=== PATIENT | female | born 1950 | race Caucasian/White ===

== ENCOUNTER 2016-08-11 14:17 | Emergency (ER) | payer BC, SELFPAY ==
[2016-08-11] MEDS ORDERED: HYDROmorphone 1 MG/ML Syringe IVPUSH ONE (14:21)
--- NOTE | 2016-08-11 14:44 | CR ---
Knee 1V or 2V Rt HISTORY: trauma pain FINDINGS: There is an oblique linear lucency at the intercondylar notch distal right femur suspiciou s for subtle nondisplaced fracture. Subtle linear lucency overlies the lateral femoral condyle which could also be associated with fracture. No displacement or dislocation is seen. There is mild degenerative narrowing of the lateral compartment with small lateral osteophytes. Dege nerative changes with small superior and inferior patellar osteophytes are seen at the patellofemora l joint. Joint effusion is noted with fluid in the suprapatellar bursa. IMPRESSION: 1. Joint effusion with fluid in the suprapatellar bursa. 2. Linear lucency suspicious for subtle fracture involving the lateral femoral condyle and at the in tracondylar notch. I see no displacement. 3. Moderate degenerative changes lateral compartment and patellofemoral joint.
--- NOTE | 2016-08-11 15:01 | EDM.PDOC ---
ED HPI GENERAL MEDICAL PROBLEM - General Chief Complaint: Lower Extremity Injury/Pain Stated Complaint: FALL, VIA NORTH Time Seen by Provider: 08/11/16 14:30 Source of Information: Reports: Patient, EMS, RN Notes Reviewed History Limitations: Reports: No Limitations - History of Present Illness INITIAL COMMENTS - FREE TEXT/NARRATIVE: 65-year-old female presents emergency department today via EMS services, she tripped going up the stairs earlier today landing on her right knee producing significant pain, pain is so severe she cannot bear weight Right Knee Pain Score (Numeric/FACES): 5 - Related Data Allergies Allergy/AdvReac Type Severity Reaction Status Date / Time Sulfa (Sulfonamide Allergy Rash Verified 08/11/16 14:39 Antibiotics) Home Meds: Home Meds Acyclovir [Acyclovir] 1,200 mg PO DAILY PRN 04/24/15 [History] Cyclobenzaprine HCl [Cyclobenzaprine HCl] 10 mg PO BEDTIME PRN 08/11/16 [History ] Past Medical History HEENT History: Reports: Impaired Vision Cardiovascular History: Reports: Hypertension 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: Musculoskeletal History: Reports: Arthritis Endocrine/Metabolic History: Reports: Obesity/BMI 30+, Other (See Below) Other Endocrine/Metabolic History: hyperglycemia - Past Surgical History GI Surgical History: Reports: Colonoscopy, EGD, Polypectomy Female Surgical History: Reports: Oophorectomy Social & Family History - Tobacco Use Smoking Status *Q: Never Smoker - Caffeine Use Caffeine Use: Reports: Coffee - Recreational Drug Use Recreational Drug Use: No Review of Systems - Review of Systems Review Of Systems: See Below Constitutional: Reports: No Symptoms Musculoskeletal: Reports: Joint Pain (Right knee pain) Skin: Reports: No Symptoms Neurological: Reports: No Symptoms Trauma Exam - Physical Exam Exam: See Below Text/Narrative:: Examination of the right knee I don't appreciate any erythema there is no edema or leg is slightly cooler to the touch than the left and pedal pulse is +1 compared to +2 on the left, she has significant pain with any palpation around the knee cannot perform any maneuvers Exam Limited By: No Limitations General Appearance: Reports: Alert, WD/WN, No Apparent Distress Course - Vital Signs Last Recorded V/S: Last Vital Signs Temp 95.5 F 08/11/16 14:27 Pulse 74 08/11/16 15:36 Resp 16 08/11/16 15:36 BP 150/81 H 08/11/16 15:36 Pulse Ox 92 L 08/11/16 15:36 - Orders/Labs/Meds Orders: Active Orders 24 hr Category Date Time Status Knee wo Cont Rt [CT] Stat Exams 08/11/16 14:58 Taken Meds: Medications Discontinued Medications Generic Name Dose Route Start Last Admin Trade Name Dioni PRN Reason Stop Dose Admin Hydromorphone HCl 1 mg 08/11/16 14:21 08/11/16 14:40 Dilaudid IVPUSH 08/11/16 14:22 1 mg ONETIME ONE Administration - Re-Assessments/Exams Free Text/Narrative Re-Assessment/Exam: 08/11/16 15:56 Reexamination of the distal foot after repositioning the foot is now warm pulses are equal +2 bilaterally Departure - Departure Time of Disposition: 15:59 Disposition: Home, Self-Care 01 Condition: good Clinical Impression: Intercondylar fracture of femur - Discharge Information Forms: ED Department Discharge Additional Instructions: Use hydrocodone as needed for pain control, please followup with Dr. Zavala orthopedic surgery Tuesday at 1 PM in the afternoon, remain noneweightbearing until reevaluated by orthopedics - My Orders Last 24 Hours: My Active Orders 08/11/16 14:58 Knee wo Cont Rt [CT] Stat - Assessment/Plan Last 24 Hours: My Active Orders 08/11/16 14:58 Knee wo Cont Rt [CT] Stat Plan: Assessment Acuity = acute Site and laterality = nondisplaced intercondylar fracture distal femur right Etiology = secondary to a fall Manifestations = pain Location of injury = home Lab values = x-ray and CT scan confirm the fracture above Plan Called discussed case with Dr. Hans Zavala orthopedics recommended knee brace flexed at 20% nonweightbearing, knee brace to be worn at all times except for hygiene followup with orthopedics Tuesday at 1 PM, 30 hydrocodone given for pain control Patient was in agreement with the plan all questions were answered, they were instructed to return to the emergency department or call for worsening symptoms. This note was dictated using In[employer] voice recognition software please call with any questions.
[2016-08-11 15:41] VITALS: BP 150/81
[2016-08-11] MEDS ORDERED: Ondansetron 4 MG/2 ML SDV IVPUSH ONE (16:20)
== END 2016-08-11 17:02 | disposition home or self-care (01) ==
LOC: JP.ED 14:17
DX: S72.413 Displaced unspecified condyle fracture of lower end of unspecified femur (principal); H54.7 Unspecified visual loss; Z88.2 Allergy status to sulfonamides; Z79.899 Other long term (current) drug therapy; Z98.890 Other specified postprocedural states; W01.0XXA Fall on same level from slipping, tripping and stumbling without subsequent striking against object, initial encounter
CPT/HCPCS: 73560; 73700; 96374; 96375; 99284; J1170; J2405

== ENCOUNTER 2018-07-10 07:48 | Day surgery (SDC) | payer MEDICARE ==
[2018-07-10] MEDS ORDERED: Propofol 200 MG/20 ML SDV ONE (08:04)
[2018-07-10] MEDS ORDERED: Midazolam 1 MG/ML 2 ML SDV ONE (08:04)
[2018-07-10] MEDS ORDERED: fentaNYL 100 MCG/2 ML SDV ONE (08:04)
[2018-07-10] MEDS ORDERED: Lactated Ringers 1,000 ML IV SCH (08:30)
[2018-07-10 11:16] VITALS: BP 155/49
--- NOTE | 2018-07-10 13:08 | OR ---
DATE OF PROCEDURE: 07/10/2018 PREOPERATIVE DIAGNOSIS: History of colon polyps. POSTOPERATIVE DIAGNOSES: Diverticulosis, history of colon polyps. PROCEDURE: Colonoscopy to the cecum. SURGEON: Lex Coe MD ANESTHESIA: IV anesthesia with monitored anesthesia care. INDICATION: This 67-year-old white female is referred for a colonoscopy because of a history of colon polyps. Her last colonoscopic exam was done 5 years ago in [place], [place]. They recommended a repeat colonoscopy in 3 years, but it has been 5. I counseled her for the procedure, including risks and alternatives, and she gave her informed consent to proceed. DESCRIPTION OF PROCEDURE: The patient was placed in the left lateral decubitus position. IV anesthesia was administered by the Anesthesia Service. Time-out was held. A rectal exam was performed, which was unremarkable. The flexible video Olympus colonoscope was introduced through her anus, up her rectum, and out her colon all the way to the cecum. En route, we saw very few scattered left-sided diverticula. These were very shallow. Once the cecum was reached, the scope was slowly withdrawn, examining the mucosa throughout. No additional mucosal abnormalities were noted. The scope was retroflexed in the rectum with the distal rectum showing some minor hemorrhoidal tissue, otherwise unremarkable. The scope was straightened and removed. She tolerated the procedure well. Lex Coe MD /[id number] MTDD
== END 2018-07-10 10:45 | disposition home or self-care (01) ==
LOC: JP.SDS 07:48
PROVIDERS: ATTEND Surgery
DX: Z12.11 Encounter for screening for malignant neoplasm of colon (principal); K57.30 Diverticulosis of large intestine without perforation or abscess without bleeding; K21.9 Gastro-esophageal reflux disease without esophagitis; I10 Essential (primary) hypertension; Z88.2 Allergy status to sulfonamides; Z86.010 Personal history of colon polyps
CPT/HCPCS: J2250; J2704; J3010; J7120

== ENCOUNTER 2019-02-26 07:47 | Inpatient (IN) | payer MEDICARE ==
[2019-02-26] MEDS ORDERED: Acetaminophen 500 MG Tab PO ONE (08:30)
[2019-02-26] MEDS ORDERED: ceFAZolin 2 GM in Premix Bag 1 BAG IV ONE (08:30)
[2019-02-26] MEDS ORDERED: ceFAZolin 2 GM in Sodium Chloride 0.9% 50 ML IV ONE (08:30)
[2019-02-26] MEDS: Dextrose 5%-Lactated Ringers 1,000 ML IV SCH ×2 (08:43→14:57)
[2019-02-26] MEDS ORDERED: Rocuronium 50 MG/5 ML Vial ONE (08:48)
[2019-02-26] MEDS ORDERED: Ondansetron 4 MG/2 ML SDV ONE (08:48)
[2019-02-26] MEDS ORDERED: Propofol 200 MG/20 ML SDV ONE (08:48)
[2019-02-26] MEDS ORDERED: Succinylcholine 200 MG/10 ML MDV ONE (08:48)
[2019-02-26] MEDS ORDERED: Neostigmine Methylsulfate 1 MG/ML 5 ML Syringe ONE (08:48)
[2019-02-26] MEDS ORDERED: Glycopyrrolate 0.2 MG/ML 5 ML MDV ONE (08:48)
[2019-02-26] MEDS ORDERED: Dexamethasone 4 MG/ML SDV ONE (08:48)
[2019-02-26] MEDS ORDERED: fentaNYL 250 MCG/5 ML SDV ONE ×2 (08:49→10:41)
[2019-02-26] MEDS ORDERED: Naloxone 0.4 MG/ML SDV IVPUSH PRN (12:51)
[2019-02-26] MEDS ORDERED: HYDROmorphone/Normal Saline 15 MG/30 ML PCA IV PRN (12:51)
[2019-02-26] MEDS ORDERED: fentaNYL 100 MCG/2 ML SDV IVPUSH ONE (13:06)
[2019-02-26] MEDS ORDERED: Ondansetron 4 MG/2 ML SDV IVPUSH PRN (13:59)
[2019-02-26] MEDS: Acetaminophen 325 MG Tab PO SCH ×2 (16:06→21:07)
[2019-02-26] MEDS: ceFAZolin 2 GM in Sodium Chloride 0.9% 50 ML IV SCH (17:47)
[2019-02-27] MEDS: Dextrose 5%-Lactated Ringers 1,000 ML IV SCH ×2 (01:02→12:02)
[2019-02-27] MEDS: ceFAZolin 2 GM in Sodium Chloride 0.9% 50 ML IV SCH ×2 (01:04→10:50)
[2019-02-27] MEDS: Acetaminophen 325 MG Tab PO SCH ×4 (03:10→22:05)
--- NOTE | 2019-02-27 07:36 | PCM.PN ---
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 Subjective Update: Had minimal pain last night, has been up to bathroom Functional Status: Reports: Pain Controlled - Review of Systems General: Reports: No Symptoms, Other HEENT: Reports: No Symptoms Pulmonary: Reports: No Symptoms Cardiovascular: Reports: No Symptoms Gastrointestinal: Reports: No Symptoms Genitourinary: Reports: No Symptoms Musculoskeletal: Reports: No Symptoms Skin: Reports: No Symptoms Neurological: Reports: No Symptoms Psychiatric: Reports: No Symptoms - Patient Data Vitals - Most Recent: Last Vital Signs Temp 36.5 C 02/27/19 03:37 Pulse 71 02/27/19 03:00 Resp 16 02/27/19 03:00 BP 151/78 H 02/27/19 03:00 Pulse Ox 96 02/27/19 07:23 Weight - Most Recent: 172 kg I&O - Last 24 Hours: Intake & Output 02/26/19 02/27/19 02/27/19 22:59 06:59 14:59 Intake Total 454 50 Output Total 730 360 Balance -276 -310 Lab Results Last 24 Hours: Laboratory Results - last 24 hr 02/27/19 Range/Units 04:00 Sodium 141 (140-148) mmol/L Potassium 3.7 (3.6-5.2) mmol/L Chloride 104 (100-108) mmol/L Carbon Dioxide 28 (21-32) mmol/L Anion Gap 9.2 (5.0-14.0) mmol/L BUN 6 L (7-18) mg/dL Creatinine 0.8 (0.6-1.0) mg/dL Est Cr Clr Drug Dosing 49.69 mL/min Estimated GFR (MDRD) > 60 (>60) Glucose 124 H (74-106) mg/dL Calcium 8.3 L (8.5-10.1) mg/dL Phosphorus 4.1 (2.5-4.9) mg/dL Magnesium 1.7 L (1.8-2.4) mg/dL Med Orders - Current: Current Medications Acetaminophen (Tylenol) 650 mg PO Q6H [facility] Last Admin: 02/27/19 03:10 Dose: 650 mg Hydromorphone HCl (Dilaudid Building Carpenter 15 Mg In Ns 30 Ml) 0 mg IV ASDIRECTED PRN; Protocol PRN Reason: Pain Last Admin: 02/26/19 14:55 Dose: 15 mg Dextrose/Lactated Ringer's (Dextrose 5%-Lactated Ringers) 1,000 mls @ 100 mls/ hr IV ASDIRECTED [facility] Last Admin: 02/27/19 01:02 Dose: 100 mls/hr Cefazolin Sodium 2 gm/ Sodium (Chloride) 50 mls @ 100 mls/hr IV Q8H [facility] Stop: 02/27/19 10:29 Last Admin: 02/27/19 01:04 Dose: 100 mls/hr Naloxone HCl (Narcan) 0.1 mg IVPUSH Q2M PRN PRN Reason: Respiratory Distress Ondansetron HCl (Zofran) 4 mg IVPUSH Q4H PRN PRN Reason: Nausea Oxybutynin Chloride (Oxybutynin) 2.5 mg PO BID [facility] Discontinued Medications Acetaminophen (Tylenol Extra Strength) 1,000 mg PO ONETIME ONE Stop: 02/26/19 08:31 Last Admin: 02/26/19 08:41 Dose: 1,000 mg Dexamethasone (Dexamethasone) Confirm Administered Dose 4 mg .ROUTE .STK-MED ONE Stop: 02/26/19 08:49 Fentanyl (Sublimaze) Confirm Administered Dose 250 mcg .ROUTE .STK-MED ONE Stop: 02/26/19 08:50 Fentanyl (Sublimaze) Confirm Administered Dose 250 mcg .ROUTE .STK-MED ONE Stop: 02/26/19 10:42 Fentanyl (Sublimaze) 50 mcg IVPUSH ONETIME ONE Stop: 02/26/19 13:07 Last Admin: 02/26/19 13:13 Dose: 50 mcg Glycopyrrolate (Robinul) Confirm Administered Dose 1 mg .ROUTE .STK-MED ONE Stop: 02/26/19 08:49 Cefazolin Sodium 2 gm/ Sodium (Chloride) 50 mls @ 100 mls/hr IV ONETIME ONE Stop: 02/26/19 08:59 Last Admin: 02/26/19 10:18 Dose: 100 mls/hr Linezolid (Zyvox) Confirm Administered Dose 300 mls @ as directed .ROUTE .STK- MED ONE Stop: 02/26/19 11:00 Linezolid (Zyvox) 600 mg IRR .STK-MED ONE Stop: 02/26/19 11:09 Last Admin: 02/26/19 11:08 Dose: 600 mg Neostigmine Methylsulfate (Neostigmine) Confirm Administered Dose 5 mg .ROUTE .STK-MED ONE Stop: 02/26/19 08:49 Ondansetron HCl (Zofran) Confirm Administered Dose 4 mg .ROUTE .STK-MED ONE Stop: 02/26/19 08:49 Propofol (Diprivan 20 Ml) Confirm Administered Dose 200 mg .ROUTE .STK-MED ONE Stop: 02/26/19 08:49 Rocuronium [place] (Zemuron) Confirm Administered Dose 50 mg .ROUTE .STK-MED ONE Stop: 02/26/19 08:49 Succinylcholine Chloride (Quelicin) Confirm Administered Dose 200 mg .ROUTE .STK -MED ONE Stop: 02/26/19 08:49 - Exam Quality Assessment: Supplemental Oxygen Skin: Warm, Dry, Intact Wound/Incisions: Healing Well, Dressing Dry and Intact - Problem List Review Problem List Initiated/Reviewed/Updated: No - Assessment Assessment:: 68-year-old female post-operative day 1 total thyroidectomy including right central lymph node dissection and intraoperative frozen section Pathology confirming papillary carcinoma thyroid. Wound is intact, drain in place, draining well, and clean this morning. Calcium 8.3 is decreased from preoperative 9.9 preoperative. 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
[2019-02-27] MEDS ORDERED: HYDROmorphone 2 MG Tab PO PRN (08:02)
[2019-02-27] MEDS ORDERED: Sodium Chloride 0.9% 10 ML Syringe IV SCH (08:15)
[2019-02-27] MEDS: Oxybutynin 5 MG Tab PO SCH ×2 (08:27→22:05)
[2019-02-27] MEDS: Levothyroxine 100 MCG Tab PO SCH (08:27)
[2019-02-27] MEDS ORDERED: Furosemide 20 MG/2 ML VIAL IVPUSH ONE (11:38)
[2019-02-27] MEDS ORDERED: Benzocaine/Cetylpyridinium/Menthol Lozenge MUCMEM PRN (16:09)
[2019-02-28] MEDS: Acetaminophen 325 MG Tab PO SCH ×4 (03:56→22:03)
--- NOTE | 2019-02-28 07:24 | PCM.PN ---
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 continues to be out of bed to restroom and having minimal pain, asking about when she can go home. Functional Status: Reports: Pain Controlled - Review of Systems General: Reports: No Symptoms HEENT: Reports: Other (minimal incisional discomfort, no complaints of voice problems) Pulmonary: Reports: No Symptoms Cardiovascular: Reports: No Symptoms Gastrointestinal: Reports: No Symptoms Genitourinary: Reports: No Symptoms Musculoskeletal: Reports: No Symptoms Skin: Reports: No Symptoms Neurological: Reports: No Symptoms Psychiatric: Reports: No Symptoms - Patient Data Vitals - Most Recent: Last Vital Signs Temp 36.1 C 02/28/19 03:58 Pulse 67 02/28/19 03:58 Resp 16 02/28/19 03:58 BP 177/86 H 02/28/19 03:58 Pulse Ox 93 L 02/28/19 03:58 Weight - Most Recent: 78.018 kg I&O - Last 24 Hours: Intake & Output 02/27/19 02/28/19 02/28/19 22:59 06:59 14:59 Intake Total 1459 200 Output Total 905 453 Balance 554 -253 Lab Results Last 24 Hours: Laboratory Results - last 24 hr 02/28/19 Range/Units 04:15 Sodium 144 (140-148) mmol/L Potassium 3.1 L (3.6-5.2) mmol/L Chloride 103 (100-108) mmol/L Carbon Dioxide 30 (21-32) mmol/L Anion Gap 14.1 H (5.0-14.0) mmol/L BUN 11 D (7-18) mg/dL Creatinine 0.8 (0.6-1.0) mg/dL Est Cr Clr Drug Dosing 54.71 mL/min Estimated GFR (MDRD) > 60 (>60) Glucose 92 (74-106) mg/dL Calcium 7.4 L (8.5-10.1) mg/dL Phosphorus 4.6 (2.5-4.9) mg/dL Magnesium 1.5 L (1.8-2.4) mg/dL Med Orders - Current: Current Medications Acetaminophen (Tylenol) 650 mg PO Q6H [facility] Last Admin: 02/28/19 03:56 Dose: 650 mg Benzocaine/Menthol (Cepacol Sore Throat) 1 lozenge MUCMEM QID PRN PRN Reason: Cough Hydromorphone HCl (Dilaudid) 2 mg PO Q4H PRN PRN Reason: PAIN Dextrose/Lactated Ringer's (Dextrose 5%-Lactated Ringers) 1,000 mls @ 100 mls/ hr IV ASDIRECTED [facility] Last Admin: 02/27/19 12:02 Dose: 100 mls/hr Levothyroxine Sodium (Synthroid) 100 mcg PO ACBREAKFAST [facility] Last Admin: 02/27/19 08:27 Dose: 100 mcg Ondansetron HCl (Zofran) 4 mg IVPUSH Q4H PRN PRN Reason: Nausea Oxybutynin Chloride (Oxybutynin) 2.5 mg PO BID [facility] Last Admin: 02/27/19 22:05 Dose: 2.5 mg Sodium Chloride (Saline Flush) 10 ml IV ASDIRECTED [facility] Discontinued Medications Acetaminophen (Tylenol Extra Strength) 1,000 mg PO ONETIME ONE Stop: 02/26/19 08:31 Last Admin: 02/26/19 08:41 Dose: 1,000 mg Dexamethasone (Dexamethasone) Confirm Administered Dose 4 mg .ROUTE .STK-MED ONE Stop: 02/26/19 08:49 Fentanyl (Sublimaze) Confirm Administered Dose 250 mcg .ROUTE .STK-MED ONE Stop: 02/26/19 08:50 Fentanyl (Sublimaze) Confirm Administered Dose 250 mcg .ROUTE .STK-MED ONE Stop: 02/26/19 10:42 Fentanyl (Sublimaze) 50 mcg IVPUSH ONETIME ONE Stop: 02/26/19 13:07 Last Admin: 02/26/19 13:13 Dose: 50 mcg Furosemide (Lasix) 20 mg IVPUSH ONETIME ONE Stop: 02/27/19 11:39 Last Admin: 02/27/19 12:00 Dose: 20 mg Glycopyrrolate (Robinul) Confirm Administered Dose 1 mg .ROUTE .STK-MED ONE Stop: 02/26/19 08:49 Hydromorphone HCl (Dilaudid Quarry Supervisor Dimension Stone 15 Mg In Ns 30 Ml) 0 mg IV ASDIRECTED PRN; Protocol PRN Reason: Pain Last Admin: 02/26/19 14:55 Dose: 15 mg Cefazolin Sodium 2 gm/ Sodium (Chloride) 50 mls @ 100 mls/hr IV ONETIME ONE Stop: 02/26/19 08:59 Last Admin: 02/26/19 10:18 Dose: 100 mls/hr Linezolid (Zyvox) Confirm Administered Dose 300 mls @ as directed .ROUTE .STK- MED ONE Stop: 02/26/19 11:00 Cefazolin Sodium 2 gm/ Sodium (Chloride) 50 mls @ 100 mls/hr IV Q8H [facility] Stop: 02/27/19 10:29 Last Admin: 02/27/19 10:50 Dose: 100 mls/hr Linezolid (Zyvox) 600 mg IRR .STK-MED ONE Stop: 02/26/19 11:09 Last Admin: 02/26/19 11:08 Dose: 600 mg Naloxone HCl (Narcan) 0.1 mg IVPUSH Q2M PRN PRN Reason: Respiratory Distress Neostigmine Methylsulfate (Neostigmine) Confirm Administered Dose 5 mg .ROUTE .STK-MED ONE Stop: 02/26/19 08:49 Ondansetron HCl (Zofran) Confirm Administered Dose 4 mg .ROUTE .STK-MED ONE Stop: 02/26/19 08:49 Propofol (Diprivan 20 Ml) Confirm Administered Dose 200 mg .ROUTE .STK-MED ONE Stop: 02/26/19 08:49 Rocuronium [place] (Zemuron) Confirm Administered Dose 50 mg .ROUTE .STK-MED ONE Stop: 02/26/19 08:49 Succinylcholine Chloride (Quelicin) Confirm Administered Dose 200 mg .ROUTE .STK -MED ONE Stop: 02/26/19 08:49 - Exam General: Alert, Oriented, Cooperative HEENT: Pupils Equal, Pupils Reactive, EOMI, Mucous Membr. Moist/[place] Skin: Warm, Dry, Intact Wound/Incisions: Healing Well, Drainage Physical Findings Comments:: Voice quality very good, no hoarseness. - Problem List Review Problem List Initiated/Reviewed/Updated: No - Assessment Assessment:: 68-year-old female post-operative day 2 total thyroidectomy including a layer adherent to right thyroid and with right central lymph node dissection and intraoperative frozen section Pathology confirming papillary carcinoma thyroid. Wound is intact, drain in place, draining well, and clean. Calcium 7.4 continued to decrease (yesterday 8.3, preoperative 9.9). - Plan Plan:: continue inpatient morning lab draw for BMP (including calcium) continue scheduled Tylenol continue Synthroid 100 mcg PO daily continue Dilaudid 2 mg PO every 4 hours PRN for pain start KCl 40 mEq once stop Magnesium checks consult internal medicine regarding hypertension Regular diet Pt may shower Maintain IV saline lock If Pt complains of perioral paresthesias (tingling, etc.) then start Tums for calcium supplementation and call Dr Zavala.
[2019-02-28] MEDS: Levothyroxine 100 MCG Tab PO SCH (07:58)
[2019-02-28] MEDS: Oxybutynin 5 MG Tab PO SCH ×2 (08:02→21:22)
[2019-02-28] MEDS ORDERED: Potassium Chloride 20 MEQ Tab.ER PO ONE (09:00)
[2019-02-28] MEDS: Magnesium Sulfate/Water 2 GM in Premix Bag 1 BAG IV SCH ×3 (09:28→21:21)
--- NOTE | 2019-02-28 10:37 | PN ---
DATE OF SERVICE: 02/28/2019 SUBJECTIVE: Mariann is postoperative day 2. Vital signs have been stable. Oral intake adequate. She has had no paresis. Potassium was 3.1, calcium was down to 7.4 from 8.3. Nursing staff concerned as well as the patient with blood pressures being higher than normal for her. REVIEW OF SYSTEMS: Remainder of review of systems negative for any pertinent positives and negatives. OBJECTIVE: GENERAL: Mariann is a 68-year-old female. Vital Signs: TPR is 96.3, 87, 16. Blood pressure is 207/79. NECK: Incision from thyroidectomy looks good. There is no swelling. There is no paresis noted. HEART: Regular rate and rhythm. LUNGS: Clear. ASSESSMENT: Thyroid exploration. 1. Total thyroidectomy. 2. Excision of portion of the right tracheal wall. 3. Right central lymph node dissection. 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 Date of surgery is 02/26/2019. Surgeon, Blanco Zavala MD. PLAN: 1. KCl 40 mEq p.o. 2. Magnesium 2 g IV q.6 hours x72 hours. 3. Communication order written to notify provider if any paresis around the mouth and fingers or hands. 4. Labs were already ordered in series, but discontinue magnesium level for a.m. 5. We will evaluate p.r.n. or in a.m. Celia Odonnell PA-C /[id number]
--- NOTE | 2019-02-28 11:45 | PCM.CONS ---
H&P History of Present Illness - General Date of Service: 02/28/19 Admit Problem/Dx: papillary carcinoma thyroid - History of Present Illness Initial Comments - Free Text/Narative: CC: High blood pressure HPI: Mariann was admitted February 26 for a total thyroidectomy with papillary thyroid cancer. I was asked to see her by Dr. Zavala regarding hypertension. The patient reports that she feels well and does not have any pain in her neck at the surgical site. She has been mostly pain-free throughout the hospital stay. She does not feel short of breath and has not had chest pain, headache or dizziness. She does note occasional episodes of shortness of breath and dizziness as an outpatient but these are relatively mild. She reports a history of high blood pressure and was on medications but has not been on anything for the last 5 years. Her most recent clinic visits have revealed normal blood pressures. During the hospital stay she has had systolic blood pressures that have ranged anywhere from 150-200. Typically her systolic blood pressures are in the 150-170 range. Diastolic blood pressures have been 90 or less. She had a lone reading earlier this morning that was slightly greater than 200. She did not have any symptoms at that time. She is eating and drinking well with no swallowing difficulties. - Related Data Allergies/Adverse Reactions: Allergies Allergy/AdvReac Type Severity Reaction Status Date / Time Sulfa (Sulfonamide Allergy Rash Verified 02/26/19 08:37 Antibiotics) Home Medications: Home Meds Acyclovir 800 mg PO BID PRN 04/24/15 [History] Cyclobenzaprine HCl 10 mg PO TID PRN 08/11/16 [History] Oxybutynin 5 mg PO DAILY 07/05/18 [History] Past Medical History HEENT History: Reports: Impaired Vision Cardiovascular History: Reports: Hypertension Respiratory History: Reports: Other (See Below) Other Respiratory History: chronic cough Gastrointestinal History: Reports: None, GERD Genitourinary History: Reports: None 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 History: Reports: Dysfunctional Uterine Bleeding, Other OB/BYN History: bleeding is now controlled see in OBGYN Musculoskeletal History: Reports: Arthritis, Fracture Other Musculoskeletal History: femur Neurological History: Reports: Vertigo Endocrine/Metabolic History: Reports: Obesity/BMI 30+, Other (See Below) Other Endocrine/Metabolic History: hyperglycemia Oncologic (Cancer) History: Reports: Thyroid - Infectious Disease History Infectious Disease History: Reports: Chicken Pox, Multidrug-Resistant Gram- Negative, Other - Past Surgical History Cardiovascular Surgical History: Reports: None Respiratory Surgical History: Reports: None GI Surgical History: Reports: Colonoscopy, EGD, Polypectomy Female Surgical History: Reports: None, Oophorectomy, Other (See Below) Other Female Surgeries/Procedures: every six months has cervic checked Endocrine Surgical History: Reports: None Neurological Surgical History: Reports: None Musculoskeletal Surgical History: Reports: None Social & Family History - Family History Family Medical History: Noncontributory - Tobacco Use Smoking Status *Q: Never Smoker Second Hand Smoke Exposure: No - Caffeine Use Caffeine Use: Reports: Coffee, Tea - Alcohol Use Alcohol Use History: No - Recreational Drug Use Recreational Drug Use: No H&P Review of Systems - Review of Systems: Review Of Systems: See Below Free Text/Narrative: A complete 12 point review of systems was obtained. Pertinent positives and negatives are noted in the history of present illness. All other systems were reviewed and were negative except as noted. Exam - Exam Exam: See Below - Vital Signs Vital Signs: Last Vital Signs Temp 35.6 C 02/28/19 10:28 Pulse 82 02/28/19 10:28 Resp 18 02/28/19 10:28 BP 174/78 H 02/28/19 10:28 Pulse Ox 93 L 02/28/19 10:28 Weight: 78.018 kg - Exam Quality Assessment: No: Supplemental Oxygen General: Alert, Oriented, Cooperative. No: Mild Distress HEENT: Conjunctiva Clear, Mucosa Moist & [place] Neck: Supple, Other (Surgical scar from thyroidectomy is dry and intact. It was closed with glue. No drainage or erythema) Lungs: Clear to Auscultation, Normal Respiratory Effort Cardiovascular: Regular Rate, Regular Rhythm. No: Systolic Murmur GI/Abdominal Exam: Soft, Non-Tender, No Distention Extremities: No Pedal Edema. No: Increased Warmth Peripheral Pulses: 2+: Dorsalis Pedis (L), Dorsalis Pedis (R) Skin: Warm, Dry Neuro Extensive - Mental Status: Alert, Oriented x3, Nl Response to Commands Neuro Extensive - Motor, Sensory, Reflexes: No: Dysarthria, Abnormal Motor, Tremor Psychiatric: Alert, Normal Affect - Patient Data Lab Results Last 24 hrs: Laboratory Results - last 24 hr 02/28/19 Range/Units 04:15 Sodium 144 (140-148) mmol/L Potassium 3.1 L (3.6-5.2) mmol/L Chloride 103 (100-108) mmol/L Carbon Dioxide 30 (21-32) mmol/L Anion Gap 14.1 H (5.0-14.0) mmol/L BUN 11 D (7-18) mg/dL Creatinine 0.8 (0.6-1.0) mg/dL Est Cr Clr Drug Dosing 54.71 mL/min Estimated GFR (MDRD) > 60 (>60) Glucose 92 (74-106) mg/dL Calcium 7.4 L (8.5-10.1) mg/dL Phosphorus 4.6 (2.5-4.9) mg/dL Magnesium 1.5 L (1.8-2.4) mg/dL Result Diagrams: 02/28/19 04:15 Consult PN Assessment/Plan POD#: 2 Procedures: Procedures ASSAY OF CREATININE (01/23/19) BREAST TOMOSYNTHESIS BI (06/27/18) COMP SCREEN MAMMOGRAM ADD-ON (10/29/14) CT HEAD/BRAIN W/O DYE (04/24/15) CT LOWER EXTREMITY W/O DYE (08/11/16) CT THORAX W/DYE (01/23/19) CYTOPATH CELL ENHANCE TECH (02/15/19) ECHO GUIDE FOR BIOPSY (02/15/19) EMERGENCY DEPT VISIT (08/11/16) EMERGENCY DEPT VISIT (04/25/15) FNA BX W/US GDN 1ST LES (02/15/19) OFFICE/OUTPATIENT VISIT NEW (08/16/16) ROUTINE VENIPUNCTURE (01/23/19) SCR MAMMO BI INCL CAD (06/27/18) THER/PROPH/DIAG INJ IV PUSH (08/11/16) TISSUE EXAM BY PATHOLOGIST (02/15/19) TX/PRO/DX INJ NEW DRUG ADDON (08/11/16) X-RAY EXAM OF KNEE 1 OR 2 (09/16/16) X-RAY EXAM OF KNEE 3 (09/30/16) Problem List Initiated/Reviewed/Updated: Yes My Orders Last 24 Hours: My Active Orders 02/28/19 11:45 Convert IV to Saline Lock [OM.PC] Routine Plan: ASSESSMENT AND PLAN - Postoperative hypertension -history of high blood pressure but not on medications x5 years. Moderate hypertension postoperatively but no symptoms. I discussed the risks and benefits of initiating antihypertensive therapy in this situation. I believe that the risks elevated the benefits given the patient has had normal blood pressures prior to surgery. I did encourage her to follow-up with her primary care in the next week or 2. If her blood pressure remains elevated she may need to be started on therapy at that time. If her blood pressure elevates further in the interim or if she develops symptoms that are worrisome and could be attributed to significant hypertension then we may need to initiate therapy. At this point I think stopping her fluids and watchful waiting are the best approach. -Saline lock IV -Follow-up with Dr. Chavez in 1 to 2 weeks -Reconsider initiating therapy if blood pressure is consistently above 185 systolic Status post thyroidectomy -doing very well from a surgical standpoint. -Postoperative care as per surgical team Sam Saez MD
[2019-03-01] MEDS: Magnesium Sulfate/Water 2 GM in Premix Bag 1 BAG IV SCH (04:43)
[2019-03-01] MEDS: Acetaminophen 325 MG Tab PO SCH (04:43)
--- NOTE | 2019-03-01 07:03 | PCM.DCSUM1 ---
Discharge Summary - Hospital Course Free Text/Narrative:: HPI and Hospital Course: 68-year-old female was hospitalized beginning on 02/26/2019 for surgery and postoperative recovery for total thyroidectomy with right central lymph node dissection for papillary thyroid carcinoma with intraoperative frozen section confirming papillary thyroid carcinoma. Right thyroid tissue adherent to tracheal cartilage necessitated removal of outer layer of cartilage without change in voice quality. Patient tolerated procedure well, postoperative pain was minimal, thyroid replacement levothyroxine was started, and she required supplemental potassium, calcium, and magnesium supplements. Internal Medicine was consulted due to hypertension and recommended outpatient follow up. On day of discharge 03/01/2019 postoperative day 3 she remains hypocalcemic with serum calcium 7.1 mg/dL (was 9.9 preoperatively), pain is well-controlled on acetaminophen, and vitals are stable. She is being discharged to home. She should continue 100 mcg levothyroxine, supplemental calcium, magnesium, vitamin D. If any tingling or other paresthesias in lips or fingers or toes, take Tums for additional calcium. Return to clinic next Tuesday03/07/2019 for follow up and recheck BMP, Mg, Phos. Follow up with primary care regarding hypertension. Plan to also return for 3-month follow up including check TSH and magnesium. Plan to also set up a 3-or-4-week follow up in [place] looking for any remaining thyroid tissue with probable subsequent administration of the agent iodine 131. Modified [place] Scale: No Signif.Disability Despite Sympt.Able to Carry Out Usual Act./Duties Modified [place] Scale Score: 1 - Discharge Data Discharge Date: 03/01/19 Discharge Disposition: Home, Self-Care 01 Condition: Good - Referral to Home Health Primary Care Physician: Josh Chavez MD - Patient Summary/Data Operative Procedure(s) Performed: total thyroidectomy with central lymph node dissection Complications: none Consults: Consultations 02/26/19 13:58 Respiratory Care Assess and Treatment [CONS] Routine Comment: Physician Instructions: 02/28/19 08:14 Consult to Physician [CONS] Routine Consulting Provider: Sam Saez Call Completed to Consulting Physician: Yes Special Instructions: hypertension Recommended Follow-up Testing/Procedures: She should continue 100 mcg levothyroxine, supplemental calcium, magnesium, vitamin D. If any tingling or other paresthesias in lips or fingers or toes, take Tums for additional calcium. Return to clinic next Tuesday03/07/2019 for follow up and recheck BMP, Mg, Phos. Follow up with primary care regarding hypertension. Plan to also return for 3-month follow up including check TSH and magnesium. Plan to also set up a 3-or-4-week follow up in [place] looking for any remaining thyroid tissue with probable subsequent administration of the agent iodine 131. - Patient Instructions Diet: Regular Diet as Tolerated - Discharge Plan Prescriptions/Med Rec: Levothyroxine [Synthroid] 100 mcg PO ACBREAKFAST #90 tablet Magnesium Oxide 400 mg PO DAILY #30 tablet Home Medications: Home Meds Acyclovir 800 mg PO BID PRN 04/24/15 [History] Cyclobenzaprine HCl 10 mg PO TID PRN 08/11/16 [History] Oxybutynin 5 mg PO DAILY 07/05/18 [History] Acetaminophen [Tylenol] 650 mg PO Q6H tablet 03/01/19 [Rx] Levothyroxine [Synthroid] 100 mcg PO ACBREAKFAST #90 tablet 03/01/19 [Rx] Magnesium Oxide 400 mg PO DAILY #30 tablet 03/01/19 [Rx] Patient Handouts: Hypothyroidism, Thyroidectomy, Care After, Preventing Constipation After Surgery Referrals: Josh Chavez MD [Primary Care Provider] - 03/08/19 1:30 pm Blanco Zavala MD [Physician] - 03/07/19 11:00 am (Come at 10:00 am and have blood work done. BMP, Magnesium and Phosphorous) - Discharge Summary/Plan Comment DC Time >30 min.: No - General Info Date of Service: 03/01/19 Admission Dx/Problem (Free Text: papillary carcinoma thyroid Subjective Update: Postoperative day 3 after total thyroidectomy with internal central lymph node dissection and excision enbloc with layer of right trachea adherent to right thyroid tumor. Feeling well and ready to go home. - Patient Data Vitals - Most Recent: Last Vital Signs Temp 36.0 C 03/01/19 04:35 Pulse 70 03/01/19 04:35 Resp 16 03/01/19 04:35 BP 176/93 H 03/01/19 04:35 Pulse Ox 95 03/01/19 04:35 Weight - Most Recent: 78.018 kg I&O - Last 24 hours: Intake & Output 02/28/19 03/01/19 03/01/19 22:59 06:59 14:59 Intake Total 800 400 Output Total 300 350 Balance 500 50 Lab Results - Last 24 hrs: Laboratory Results - last 24 hr 03/01/19 Range/Units 04:25 Sodium 142 (140-148) mmol/L Potassium 3.7 (3.6-5.2) mmol/L Chloride 104 (100-108) mmol/L Carbon Dioxide 29 (21-32) mmol/L Anion Gap 9.4 (5.0-14.0) mmol/L BUN 9 (7-18) mg/dL Creatinine 0.6 (0.6-1.0) mg/dL Est Cr Clr Drug Dosing 72.95 mL/min Estimated GFR (MDRD) > 60 (>60) Glucose 90 (74-106) mg/dL Calcium 7.1 L (8.5-10.1) mg/dL Phosphorus 4.0 (2.5-4.9) mg/dL Med Orders - Current: Current Medications Acetaminophen (Tylenol) 650 mg PO Q6H [facility] Last Admin: 03/01/19 04:43 Dose: 650 mg Benzocaine/Menthol (Cepacol Sore Throat) 1 lozenge MUCMEM QID PRN PRN Reason: Cough Hydromorphone HCl (Dilaudid) 2 mg PO Q4H PRN PRN Reason: PAIN Magnesium Sulfate 2 gm/ Premix 50 mls @ 25 mls/hr IV Q6H [facility] Stop: 03/03/19 05:59 Last Admin: 03/01/19 04:43 Dose: 25 mls/hr Levothyroxine Sodium (Synthroid) 100 mcg PO ACBREAKFAST [facility] Last Admin: 02/28/19 07:58 Dose: 100 mcg Ondansetron HCl (Zofran) 4 mg IVPUSH Q4H PRN PRN Reason: Nausea Oxybutynin Chloride (Oxybutynin) 2.5 mg PO BID [facility] Last Admin: 02/28/19 21:22 Dose: 2.5 mg Sodium Chloride (Saline Flush) 10 ml IV ASDIRECTED [facility] Discontinued Medications Acetaminophen (Tylenol Extra Strength) 1,000 mg PO ONETIME ONE Stop: 02/26/19 08:31 Last Admin: 02/26/19 08:41 Dose: 1,000 mg Dexamethasone (Dexamethasone) Confirm Administered Dose 4 mg .ROUTE .STK-MED ONE Stop: 02/26/19 08:49 Fentanyl (Sublimaze) Confirm Administered Dose 250 mcg .ROUTE .STK-MED ONE Stop: 02/26/19 08:50 Fentanyl (Sublimaze) Confirm Administered Dose 250 mcg .ROUTE .STK-MED ONE Stop: 02/26/19 10:42 Fentanyl (Sublimaze) 50 mcg IVPUSH ONETIME ONE Stop: 02/26/19 13:07 Last Admin: 02/26/19 13:13 Dose: 50 mcg Furosemide (Lasix) 20 mg IVPUSH ONETIME ONE Stop: 02/27/19 11:39 Last Admin: 02/27/19 12:00 Dose: 20 mg Glycopyrrolate (Robinul) Confirm Administered Dose 1 mg .ROUTE .STK-MED ONE Stop: 02/26/19 08:49 Hydromorphone HCl (Dilaudid [employer] 15 Mg In Ns 30 Ml) 0 mg IV ASDIRECTED PRN; Protocol PRN Reason: Pain Last Admin: 02/26/19 14:55 Dose: 15 mg Dextrose/Lactated Ringer's (Dextrose 5%-Lactated Ringers) 1,000 mls @ 100 mls/ hr IV ASDIRECTED [facility] Last Admin: 02/27/19 12:02 Dose: 100 mls/hr Cefazolin Sodium 2 gm/ Sodium (Chloride) 50 mls @ 100 mls/hr IV ONETIME ONE Stop: 02/26/19 08:59 Last Admin: 02/26/19 10:18 Dose: 100 mls/hr Linezolid (Zyvox) Confirm Administered Dose 300 mls @ as directed .ROUTE .STK- MED ONE Stop: 02/26/19 11:00 Cefazolin Sodium 2 gm/ Sodium (Chloride) 50 mls @ 100 mls/hr IV Q8H [facility] Stop: 02/27/19 10:29 Last Admin: 02/27/19 10:50 Dose: 100 mls/hr Linezolid (Zyvox) 600 mg IRR .STK-MED ONE Stop: 02/26/19 11:09 Last Admin: 02/26/19 11:08 Dose: 600 mg Naloxone HCl (Narcan) 0.1 mg IVPUSH Q2M PRN PRN Reason: Respiratory Distress Neostigmine Methylsulfate (Neostigmine) Confirm Administered Dose 5 mg .ROUTE .STK-MED ONE Stop: 02/26/19 08:49 Ondansetron HCl (Zofran) Confirm Administered Dose 4 mg .ROUTE .STK-MED ONE Stop: 02/26/19 08:49 Potassium Chloride (Klor-Con M20) 40 meq PO ONETIME ONE Stop: 02/28/19 09:01 Last Admin: 02/28/19 09:27 Dose: 40 meq Propofol (Diprivan 20 Ml) Confirm Administered Dose 200 mg .ROUTE .STK-MED ONE Stop: 02/26/19 08:49 Rocuronium [place] (Zemuron) Confirm Administered Dose 50 mg .ROUTE .STK-MED ONE Stop: 02/26/19 08:49 Succinylcholine Chloride (Quelicin) Confirm Administered Dose 200 mg .ROUTE .STK -MED ONE Stop: 02/26/19 08:49 - Exam General: Reports: Alert, Oriented, Cooperative, No Acute Distress Skin: Reports: Warm, Dry, Intact Wound/Incisions: Reports: Healing Well, No Drainage Neurological: Reports: No New Focal Deficit Psy/Mental Status: Reports: Alert, Normal Affect, Normal Mood
[2019-03-01] MEDS: Levothyroxine 100 MCG Tab PO SCH (07:19)
[2019-03-01 07:24] VITALS: BP 198/92; PULSE 76
[2019-03-01] MEDS: Oxybutynin 5 MG Tab PO SCH (08:11)
[2019-03-01] MEDS ORDERED: Magnesium Oxide 400 MG Tab PO SCH (09:00)
--- NOTE | 2019-03-01 12:53 | DISCH ---
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 DISCHARGE DIAGNOSES: Thyroid exploration. 1. Total thyroidectomy. 2. Excision of portion of the right tracheal wall. 3. Right central lymph node dissection. POSTOPERATIVE DIAGNOSES: 1. Probable papillary carcinoma. 2. Right gland with adherence to right and lateral trachea. 3. Single small lymph node with right central component. Date of surgery, 02/26/2019. Surgeon, Blanco Zavala MD. HISTORY: Ms. Mariann Urena is a 68-year-old female with a thyroid nodule. After preoperative evaluation and discussion of possible risks and possible complications, she wished to proceed with surgical procedure. HOSPITAL COURSE: Mariann had her surgery on 02/26/2019. She had no operative complications. On postoperative day #1, she was started on a regular diet. Her BARREL LINER was discontinued, IV saline locked, and she was started on Synthroid 100 mcg daily and oral pain medication. On postoperative day #2, calcium decreased from admission at 8.3 to 7.4. She was asymptomatic. Potassium was 3.1. Blood pressure was higher than what it had been at home, and she was concerned about her blood pressure and had an Internal Medicine consult. Potassium was replaced. Magnesium was replaced. Labs were checked in the morning. On day of discharge, 03/01/2019; calcium was 7.1, and she was asymptomatic. She was able to be discharged to home. Vital signs stable. Pain was well managed on Tylenol. Activity was good. REVIEW OF SYSTEMS: Remainder of review of systems negative for any pertinent positives and negatives. OBJECTIVE: GENERAL: Ms. Mariann Urena is a 68-year-old female. VITAL SIGNS: Height is 5 feet 2 inches, weight is 172 pounds. TPR is 96.4, 76, 18, and blood pressure 198/92. HEENT: Negative. Incision, Steri-Strip looks good. There is a little bit of swelling above that incision. Her voice is strong. PENNY drain will be removed prior to discharge. HEART: Regular rate and rhythm. LUNGS: Clear. ABDOMEN: Soft, nontender. She did have a bowel movement. EXTREMITIES: Without peripheral edema. DISPOSITION: Discharged home. DISCHARGE CONDITION: Stable and improving. FOLLOWUP: Followup appointment on 03/07/2019, at 11 a.m., with Blanco Zavlaa MD. Check BMP, magnesium, and phosphorus at 10 a.m. before her appointment. At this appointment, an iodine 131 test will be ordered in [place], to have at the time of her three-month TSH lab value. She will also need to have a magnesium serum level checked at that time. Follow up with Josh Chavez MD, in regard to hypertension. An appointment was made for 03/08/2019, at 1:30 p.m. DISCHARGE MEDICATIONS: Home Medications: 1. Levothyroxine 100 mcg oral before breakfast, #90. 2. Tylenol 650 oral q.6 hours p.r.n. pain. 3. Mag oxide 400 mg oral daily for three months. She is to resume her home medications, which include acyclovir 800 mg twice daily p.r.n., cyclobenzaprine 10 mg 3 times a day for muscle spasms, and oxybutynin 5 mg oral daily. DIET: Regular diet, but avoid hard crunchy foods. Drink 8 to 10 glasses of water a day. ACTIVITY: No lifting greater than 10 pounds for 4 to 6 weeks. Walk at least 6 times daily in your home. Driving, do not drive for 1 week. Shower/bathing, may shower. Keep operative site clean and dry. DISCHARGE INSTRUCTIONS: Notify provider if any fever, increased pain, swelling, redness, drainage, nausea, or vomiting. Special instructions; 1. If you notice any numbness or tingling around your lips or cheeks, cramping in fingers and hands, take 4 Tums followed by 2 Tums every 2 hours until symptoms stop. Call the hospital or clinic if this should happen. 2. Avoid repetitive head movement, up and down and [id number].
--- NOTE | 2019-03-05 09:44 | OR ---
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 OPERATIVE PROCEDURE: Thyroid exploration with: 1. Total thyroidectomy with right central lymph node dissection (97644). 2. Excision of a portion of the trachea adherent to right thyroid tumor ([id number]). ANESTHESIA: General. ASSISTANTS: Celia Odonnell PA-C, and KATHY Leggett3. INDICATION FOR PROCEDURE: This is a 68-year-old female presenting with a recently identified thyroid mass. Fine-needle aspiration of right thyroid nodule was consistent with papillary carcinoma. Plan is to proceed with a right thyroid lobectomy with frozen section confirmation and then a total thyroidectomy, assuming that papillary carcinoma is confirmed. The patient will also undergo appropriate lymph node dissections, if clinically indicated per the operative findings. Potential risks of procedure including bleeding, infection, injury to underlying structures such as recurrent laryngeal nerve and/or parathyroid glands, and consequences of those potential injuries or excisions were reviewed with the patient, along with the likelihood of needing additional treatments such as I-131 treatments postoperatively, were gone over, and the patient wishes to proceed. OPERATIVE FINDINGS: On the right thyroid lobe, there was a firm nodule. This was adherent anteriorly to some of the strap muscles, and some of the strap musculature was then excised en bloc with the right lobe of the trachea. Posteriorly, it was also adherent to the trachea, beginning at a point just below the cricotracheal ligament. This was in the anterolateral right trachea. Subsequent dissection showed the recurrent laryngeal nerve to be posterior to this, and this was not needing to be resected. A portion of the tracheal wall was excised en bloc with the mass, but no full-thickness tracheal defect was present as we left the inner aspect of the tracheal rings, which were partially ossified intact, removing the more superficial portion of the tracheal wall adherent to the mass. There was no palpable lymphadenopathy in the central neck on the right side. There was what appeared to be a roughly 6-mm calcified nodule which may be a lymph node or fat necrosis, but otherwise no significant lymphadenopathy. Given the extensiveness and aggressive appearance of the tumor on the right side, we did elect to proceed with a central lymph node dissection (cervical lymph nodes level ). At the conclusion of the procedure, the patient in the recovery room did have a satisfactory sounding voice. DETAILS OF PROCEDURE: The patient was taken to operating room, and after general endotracheal anesthesia was induced, the patient was placed with the neck somewhat extended and the upper chest and neck areas were prepped and draped. A transverse collar incision was made and carried down through the skin and subcutaneous tissue and platysmal layers. Subplatysmal flaps were then raised superiorly and laterally. The strap muscles were then divided in midline, initially extending the dissection toward the right. The strap muscles as noted above were noted to be adherent to the mass located in the upper aspect of the right thyroid lobe. Some of this musculature was then excised, leaving it down the surface of the thyroid and thyroid mass. Following this then, the more lateral aspect of the thyroid was not noted to be fixed, although there was quite a bit of general inflammation in the area. The inferior thyroid vein and middle thyroid veins were then divided with Sonicision device and the upper pole then taken also with Sonicision device. As one began to dissect posteriorly, it became evident that the mass was also adherent to the trachea as noted above. At that point, we decided to proceed with a plane in the posterior aspect from a medial to lateral approach. Given this, the isthmus was then divided at its junction with the left thyroid lobe. This included a nodule on the left side of the isthmus, which was, on fine-needle aspiration, thought to be benign. This dissection then continued laterally across the trachea, and as one approached the area where the tumor was adherent to the trachea, the cartilage, as noted above was partially ossified, was excised on its more or less superficial half, leaving an otherwise intact trachea, including any full-thickness defect, but removing substantial portion of the tracheal cartilage which was adherent to the mass. This allowed further lateral dissection away from the area, which was just lateral to that area of attachment and these specimens delivered from the field. Frozen section was consistent with a probable papillary carcinoma as expected. Given the massive appearance of the primary tumor, we then elected to proceed with a right central lymph node dissection. As noted above, there was a roughly 6-mm calcified lesion of uncertain nature, but otherwise, there was no significant adenopathy. Using a combination of blunt and sharp dissection and Sonicision device, the lymphatic and fatty tissue between the trachea and the common carotid artery from the hyoid bone downward to the brachiocephalic vessels in a substernal location was all excised and then sent as a separate specimen for permanent sections. The left lobe of the thyroid was then addressed. The inferior and middle thyroid veins were initially divided and the upper pole vessels divided with Sonicision device. This allowed a medial rotation of the left lobe of thyroid away from the trachea. There was quite a bit in the way of inflammation in this, no obvious palpable pathology within the left lobe of the thyroid, and the branches of the inferior thyroid artery were divided flush with the capsule, reflecting the parathyroid tissue laterally away from the thyroid capsule as the dissection proceeded. Potentially, the areas around the ligament of West were divided. A very small rim of thyroid tissue was left over the ligament of West so as to avoid any direct dissection on the recurrent laryngeal nerve, given the relatively difficult dissection on the right side. This specimen was then delivered from the field and sent for permanent section as well. Palpation of the central ami space on the left side again found no evident pathology. At this point, the area of dissection was inspected and irrigated with some saline solution containing Zyvox. A 10-Citizen Of [place] round [place] drain was then taken through a stab wound lateral to the incision on the right side and across the area of dissection. The strap muscles were then approximated with a 3-0 Vicryl stitch, the platysmal layer with 4-0 Vicryl stitch, and the skin with a 5-0 Vicryl subcuticular stitch. The patient was allergic to tape, so surgical glue was placed over the incision and a dressing applied. The drain was sutured to the skin with some 3-0 Vicryl stitch. The patient was taken to the recovery room in satisfactory condition. Physician therapy assistant, Celia Odonnell, played an essential role in assisting in this case, helping to position the patient, retract structures as needed, as well as suturing and cutting sutures when indicated. Her presence improved patient safety and decreased the operative time. Blanco Zavala MD /[id number]
== END 2019-03-01 09:12 | disposition home or self-care (01) | DRG 627 ==
LOC: JP.SDSSCHI 07:47 → JP.SDS 07:47 → EDSTATUS 09:45 → JP.2SS 12:35
PROVIDERS: ADMIT Surgery; ATTEND Surgery
PROC: 0GTK0ZZ Resection of Thyroid Gland, Open Approach (ICD-10-PCS; principal; 2019-02-26)
PROC: 07T10ZZ Resection of Right Neck Lymphatic, Open Approach (ICD-10-PCS; 2019-02-26)
PROC: 0BB10ZZ Excision of Trachea, Open Approach (ICD-10-PCS; 2019-02-26)
DX: C73 Malignant neoplasm of thyroid gland (principal); E83.51 Hypocalcemia; I10 Essential (primary) hypertension; N32.81 Overactive bladder; A63.0 Anogenital (venereal) warts; H54.7 Unspecified visual loss; K21.9 Gastro-esophageal reflux disease without esophagitis; E66.9 Obesity, unspecified; I97.3 Postprocedural hypertension; Z79.899 Other long term (current) drug therapy; Z88.2 Allergy status to sulfonamides; Z90.722 Acquired absence of ovaries, bilateral; Z68.31 Body mass index [BMI] 31.0-31.9, adult
CPT/HCPCS: 36415; 80048; 83735; 84100; 88305; 88307; 88311; 88331; 88334; 94762; A9270-GY; J0330; J0690; J1100; J1170; J1940; J2020; J2405; J2704; J2710; J3010; J3475; J3490; J7042; J7050

== ENCOUNTER 2019-05-03 07:45 | Day surgery (SDC) | payer MEDICARE ==
[2019-05-03] MEDS ORDERED: Midazolam 1 MG/ML 2 ML SDV ONE (08:31)
[2019-05-03] MEDS ORDERED: Propofol 200 MG/20 ML SDV ONE (08:31)
[2019-05-03] MEDS ORDERED: fentaNYL 100 MCG/2 ML SDV ONE (08:31)
[2019-05-03] MEDS ORDERED: Pantoprazole 40 MG Vial IVPUSH ONE (08:48)
[2019-05-03] MEDS ORDERED: Dextrose 5%-Lactated Ringers 1,000 ML IV SCH (09:00)
[2019-05-03 10:15] VITALS: BP 153/70; PULSE 68
--- NOTE | 2019-05-13 12:44 | OR ---
DATE OF PROCEDURE: 05/03/2019 SURGEON: Blanco Zavala MD PREOPERATIVE DIAGNOSIS: Possible gastroesophageal reflux disease. POSTOPERATIVE DIAGNOSES: 1. Small hiatal hernia with moderately active gastroesophageal reflux disease. 2. Slight redness and edema of hypopharynx and larynx and upper esophageal sphincter. OPERATIVE PROCEDURE: Esophagogastroduodenoscopy with: 1. Biopsies of esophagogastric junction with histologic evaluation. 2. Biopsies of antrum for CLOtest. ANESTHESIA: IV sedation. INDICATIONS FOR PROCEDURE: The patient has had some recently worsening symptoms of discomfort and hoarseness referable to the hypopharynx and laryngeal areas. She is thought to have some degree of reflux perhaps, and upper endoscopy is to be undertaken to evaluate that issue. Potential risks including bleeding and perforation were discussed, and the patient wishes to proceed. DETAILS OF PROCEDURE: The patient was taken to the operating room and placed in a left lateral decubitus position. IV sedation was administered after which the upper GI endoscope was passed orally through the length of the esophagus into the stomach with retroflexion view of the fundus and thereafter through the pyloric channel into the proximal duodenum. Findings included some redness and edema of the hypopharynx and larynx, and this extended into the area of the upper esophageal sphincter. This may be consistent with some ongoing reflux but also perhaps could be related to patient's recent course of I-131 for adjuvant treatment of thyroid cancer. Continuing into the mid esophagus, this was relatively unremarkable. At the EG junction, there was 1 cm to 2 cm hiatal hernia with some moderately active gastroesophageal reflux disease in terms of edema and friability of the mucosa. There was no plaquing or stricturing or suggestion of neoplastic change. Within the stomach, there were some patchy reddened areas in the antrum, but otherwise, it was unremarkable to the level of the junction of the third and fourth portions of the duodenum. At this point, the biopsies were obtained from the antrum and sent for CLOtest for H pylori. Multiple biopsies were obtained from esophagogastric junction, sent for histologic evaluation. Minimal bleeding from biopsy sites was seen, and the procedure was then concluded. Plan will be to give the patient Protonix 40 mg IV in the recovery room and then begin Protonix 40 mg daily #30 with refill x5. We will see the patient back in 3 weeks to see if the anti-reflux treatment has been helpful. Blanco Zavala MD /[id number]
== END 2019-05-03 10:17 | disposition home or self-care (01) ==
LOC: JP.SDS 07:45
PROVIDERS: ATTEND Surgery
DX: K21.9 Gastro-esophageal reflux disease without esophagitis (principal); K44.9 Diaphragmatic hernia without obstruction or gangrene; J39.2 Other diseases of pharynx; J38.4 Edema of larynx; K22.8 Other specified diseases of esophagus; I10 Essential (primary) hypertension; E03.9 Hypothyroidism, unspecified; Z88.2 Allergy status to sulfonamides
CPT/HCPCS: 87081; 88305; C9113; J2250; J2704; J3010; J7121

== ENCOUNTER 2019-10-10 08:56 | Day surgery (SDC) | payer MEDICARE, OTHER ==
[2019-10-10] MEDS ORDERED: fentaNYL 100 MCG/2 ML SDV ONE (09:36)
[2019-10-10] MEDS ORDERED: Midazolam 1 MG/ML 2 ML SDV ONE (09:36)
[2019-10-10] MEDS ORDERED: Propofol 200 MG/20 ML SDV ONE ×3 (09:37→12:46)
[2019-10-10] MEDS ORDERED: Lactated Ringers 1,000 ML IV SCH (09:45)
[2019-10-10] MEDS ORDERED: Nozin Nasal Sanitizer NASBOTH ONE (09:45)
[2019-10-10] MEDS ORDERED: ceFAZolin 2 GM in Premix Bag 1 BAG IV ONE (09:45)
[2019-10-10] MEDS ORDERED: Bupivacaine 0.5% 30 ML SDV ONE ×2 (10:17→11:01)
[2019-10-10] MEDS ORDERED: Ondansetron 4 MG/2 ML SDV IVPUSH ONE (15:00)
[2019-10-10 17:11] VITALS: BP 147/60; PULSE 58
--- NOTE | 2019-10-17 20:00 | OR ---
DATE OF PROCEDURE: 10/10/2019 SURGEON: Myron Sosa MD PREOPERATIVE DIAGNOSIS: Rotator cuff tear, right shoulder. POSTOPERATIVE DIAGNOSES: 1. Rotator cuff tear, right shoulder. 2. Impingement, right shoulder. 3. Mild subscapularis tear. 4. 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 PROCEDURE: Arthroscopy, right shoulder with debridement of subscapularis, chondroplasty of glenoid, subacromial decompression with acromioplasty and rotator cuff repair. ANESTHESIA: Interscalene block with general. INDICATIONS: Mariann is a very pleasant 69-year-old female with a history of persistent right shoulder pain and weakness. Examination and imaging are consistent with a small to mid size rotator cuff tear. She now presents for arthroscopic repair. Risks, benefits, potential complications of the procedure were discussed. DESCRIPTION OF PROCEDURE: After adequate anesthesia was obtained, patient placed in lateral decubitus position and secured to the beanbag positioner. All bony prominences were well padded. Right shoulder and arm were prepped and draped in a sterile fashion and 10 pounds of traction was placed through the shoulder traction unit. A standard posterior portal was established and the glenohumeral joint was inspected. This revealed a small articular cartilage defect in the mid anterior glenoid with grade 3 and 4 changes. The glenoid labrum was intact with some mild degeneration. The biceps anchor was intact as was the biceps tendon. Fraying and partial-thickness tear of the superior aspect of the subscapularis was noted. Anterior portal was established and the subscapularis was debrided and the remaining tendon was very stable and the degenerative portion was very small area superiorly encompassing less than 10% of the tendon. The glenoid was lightly debrided around the articular defect. Biceps tendon was further evaluated at its insertion into the groove and was intact. The undersurface of the rotator cuff revealed a small full- thickness tear with minimal retraction. The scope was withdrawn and placed in the subacromial space. A [id number] subacromial bursitis was present. Significant impingement was noted with scuffing on the undersurface of the coracoacromial ligament and superior surface of the rotator cuff. A small full-thickness tear of the tendon was noted with again minimal retraction of just about a centimeter. Soft tissues were cleared from the undersurface of the acromion and coracoacromial ligament was released from the anterior edge. A dean was then utilized to perform an acromioplasty removing the anterolateral aspect on the undersurface of the acromion, beveling this medially and posteriorly. Approximately 4-5 mm was removed. The rotator cuff was further inspected. The edge of the tear was debrided with a shaver, and some mild tattering and small areas of partial thickness tear were present anteriorly and posterior to the full thickness tear. The superior aspect of the footprint was debrided with a shaver and then lightly decorticated with a dean. Two Mitek Healix anchors were then placed into the tuberosity. All 4 limbs of each suture anchor were then passed through the cuff beginning posteriorly and working anteriorly. Sutures were then tied down in standard arthroscopic technique. One pair of each of the sutures from the anterior and one pair from the posterior anchor were selected and placed through a knotless anchor laterally securing a double row repair. This provided excellent fixation of the cuff against the tuberosity. Remaining sutures were cut. Shoulder was drained. Scope was withdrawn. Port sites were closed in a standard fashion. Sterile dressing was applied. The patient tolerated the procedure very well. There were no complications. She was taken from the operating room in stable condition. Myron Sosa MD /[id number] MTDD
== END 2019-10-10 15:55 | disposition home or self-care (01) ==
LOC: JP.SDS 08:56
PROVIDERS: ATTEND Specialist
DX: M75.111 Incomplete rotator cuff tear or rupture of right shoulder, not specified as traumatic (principal); M25.811 Other specified joint disorders, right shoulder; M94.211 Chondromalacia, right shoulder; M19.011 Primary osteoarthritis, right shoulder; I10 Essential (primary) hypertension; E89.0 Postprocedural hypothyroidism; R73.9 Hyperglycemia, unspecified; K21.9 Gastro-esophageal reflux disease without esophagitis; E66.9 Obesity, unspecified; Z85.850 Personal history of malignant neoplasm of thyroid; Z79.890 Hormone replacement therapy; Z79.899 Other long term (current) drug therapy; Z88.8 Allergy status to other drugs, medicaments and biological substances; Z88.2 Allergy status to sulfonamides; Z68.34 Body mass index [BMI] 34.0-34.9, adult; Z11.59 Encounter for screening for other viral diseases
CPT/HCPCS: 29826; 29827; A9270; C1713; J0690; J2250; J2405; J2704; J3010; J3490; J7120; U0002

== ENCOUNTER 2019-11-01 11:00 | Emergency (ER) | payer MEDICARE ==
--- NOTE | 2019-11-01 11:33 | EDM.PDOC ---
ED HPI GENERAL MEDICAL PROBLEM - General Chief Complaint: Neuro Symptoms/Deficits Stated Complaint: STROKE? VIA [facility] Time Seen by Provider: 11/01/19 11:25 Source of Information: Reports: Patient History Limitations: Reports: No Limitations - History of Present Illness INITIAL COMMENTS - FREE TEXT/NARRATIVE: pt arrived after having an episode when she was chewing and she then developed numbness on the rtt side of the face. She later stated that this was not true numbness but more of a tightness. She continues to feel tight in the face. Onset: Today, Sudden Duration: Hour(s): Location: Reports: Face, Upper Extremity, Left, Other (pt is feeling slightly numbness) Associated Symptoms: Reports: Other (pt has nausea. ) denies Pain Score (Numeric/FACES): 0 - Related Data Allergies Allergy/AdvReac Type Severity Reaction Status Date / Time Sulfa (Sulfonamide Allergy Rash Verified 11/01/19 11:25 Antibiotics) lisinopril AdvReac Cough Verified 11/01/19 11:25 Home Meds: Home Meds Acyclovir 800 mg PO BID 04/24/15 [History] Cyclobenzaprine HCl 10 mg PO TID PRN 08/11/16 [History] Oxybutynin 5 mg PO DAILY 07/05/18 [History] Acetaminophen [Tylenol] 650 mg PO Q6H tablet 03/01/19 [Rx] Levothyroxine [Synthroid] 100 mcg PO ACBREAKFAST #90 tablet 03/01/19 [Rx] Magnesium Oxide 400 mg PO DAILY #30 tablet 03/01/19 [Rx] Famotidine 40 mg PO DAILY 10/09/19 [History] Losartan [Cozaar] 100 mg PO DAILY 10/09/19 [History] Pantoprazole Sodium [Protonix] 40 mg PO DAILY 10/09/19 [History] Past Medical History HEENT History: Reports: Impaired Vision Cardiovascular History: Reports: Hypertension Respiratory History: Reports: Other (See Below) Other Respiratory History: chronic cough since November 2018 Gastrointestinal History: Reports: Colon Polyp Genitourinary History: Reports: None [employer]IST History: Reports: Dysfunctional Uterine Bleeding, Other [employer] MA[employer]IST History: bleeding is now controlled see in OBGYN Musculoskeletal History: Reports: Arthritis, Fracture Other Musculoskeletal History: femur Neurological History: Reports: Vertigo Endocrine/Metabolic History: Reports: Hypothyroidism, Obesity/BMI 30+, Other (See Below) Other Endocrine/Metabolic History: hyperglycemia Oncologic (Cancer) History: Reports: Thyroid - Infectious Disease History Infectious Disease History: Reports: Chicken Pox, Multidrug-Resistant Gram- Negative, Other - Past Surgical History HEENT Surgical History: Reports: None Cardiovascular Surgical History: Reports: None Respiratory Surgical History: Reports: None GI Surgical History: Reports: Colonoscopy, EGD, Polypectomy Female Surgical History: Reports: None, Oophorectomy, Other (See Below) Other Female Surgeries/Procedures: every six months has cervic checked Endocrine Surgical History: Reports: None Neurological Surgical History: Reports: None Musculoskeletal Surgical History: Reports: Shoulder Surgery Other Musculoskeletal Surgeries/Procedures:: right RCR 10/10/19 Oncologic Surgical History: Reports: Other (See Below) Other Oncologic Surgeries/Procedures: thyroidectomy Social & Family History - Family History Family Medical History: Noncontributory - Caffeine Use Caffeine Use: Reports: Coffee ED ROS GENERAL - Review of Systems Review Of Systems: See Below Constitutional: Reports: No Symptoms HEENT: Reports: Other (numbness onthe left side of her face--more of a tightness. ) Respiratory: Reports: No Symptoms Cardiovascular: Reports: No Symptoms Endocrine: Reports: No Symptoms GI/Abdominal: Reports: No Symptoms : Reports: No Symptoms Musculoskeletal: Reports: No Symptoms Skin: Reports: No Symptoms Neurological: Reports: Other ( tighness on the left side of her face. ) Psychiatric: Reports: Anxiety ED EXAM, NEURO - Physical Exam Exam: See Below Text/Narrative:: pt arrived with a history of developing marked facial tightness hile she was chewing some toast. She did not have pain and she does not have numbness. It was noted that she had mild facial asymetry. Exam Limited By: No Limitations General Appearance: Alert, Anxious, Mild Distress, Other (pupils are equal and reactive. ) Ears: Normal TMs Nose: Normal Inspection Throat/Mouth: Normal Inspection, Other (pt has definite swelling in the left parotid. This is tender to palpate. ) Head Exam: Atraumatic Neck: Normal Inspection Respiratory/Chest: No Respiratory Distress Cardiovascular: Regular Rate, Rhythm GI/Abdominal: Soft, Non-Tender (Female) Exam: Deferred Rectal (Female) Exam: Deferred Neurological: Alert, Oriented x 3 Back Exam: Normal Inspection Extremities: Normal Inspection, Other (pt is doing well with her rt shoulder post surgery. ) Psychiatric: Normal Affect Course - Vital Signs Last Recorded V/S: Last Vital Signs Temp 37.1 C 11/01/19 11:36 Pulse 78 11/01/19 11:36 Resp 16 11/01/19 11:36 BP 205/73 H 11/01/19 11:36 Pulse Ox 96 11/01/19 11:36 - Orders/Labs/Meds Labs: Laboratory Tests 11/01/19 11/01/19 11/01/19 Range/Units 11:35 11:35 11:54 WBC 7.1 (4.5-11.0) K/uL RBC 4.45 (3.30-5.50) M/uL Hgb 13.1 (12.0-15.0) g/dL Hct 40.9 (36.0-48.0) % MCV 92 (80-98) fL MCH 29 (27-31) pg MCHC 32 (32-36) % Plt Count 231 (150-400) K/uL Neut % (Auto) 68 H (36-66) % Lymph % (Auto) 20 L (24-44) % [place] % (Auto) 6 (2-6) % Eos % (Auto) 5 H (2-4) % Baso % (Auto) 1 (0-1) % D-Dimer, Quantitative 729 H (0.0-400.0) ng/mL Sodium 143 (140-148) mmol/L Potassium 3.7 (3.6-5.2) mmol/L Chloride 105 (100-108) mmol/L Carbon Dioxide 29 (21-32) mmol/L Anion Gap 9.5 (5.0-14.0) mmol/L BUN 8 (7-18) mg/dL Creatinine 0.9 (0.6-1.0) mg/dL Est Cr Clr Drug Dosing 43.57 mL/min Estimated GFR (MDRD) > 60 (>60) Glucose 114 H (74-106) mg/dL Calcium 8.6 D (8.5-10.1) mg/dL Magnesium 2.0 (1.8-2.4) mg/dL Total Bilirubin 0.3 (0.2-1.0) mg/dL AST 16 (15-37) U/L ALT 28 (12-78) U/L Alkaline Phosphatase 75 (46-116) U/L Total Protein 7.1 (6.4-8.2) g/dL Albumin 3.6 (3.4-5.0) g/dL Globulin 3.5 (2.3-3.5) g/dL Albumin/Globulin Ratio 1.0 L (1.2-2.2) Urine Color (YELLOW) Urine Appearance (CLEAR) Urine pH (5.0-8.0) Ur Specific [place] (1.008-1.030) Urine Protein (NEGATIVE) mg/dL Urine Glucose (UA) (NEGATIVE) mg/dL Urine Ketones (NEGATIVE) mg/dL Urine Occult Blood (NEGATIVE) Urine Nitrite (NEGATIVE) Urine Bilirubin (NEGATIVE) Urine Urobilinogen (0.2-1.0) EU/dL Ur Leukocyte Esterase (NEGATIVE) Urine RBC (0-5) Urine WBC (0-5) Ur Epithelial Cells Amorphous Sediment Urine Bacteria Urine Mucus 11/01/19 Range/Units 12:18 WBC (4.5-11.0) K/uL RBC (3.30-5.50) M/uL Hgb (12.0-15.0) g/dL Hct (36.0-48.0) % MCV (80-98) fL MCH (27-31) pg MCHC (32-36) % Plt Count (150-400) K/uL Neut % (Auto) (36-66) % Lymph % (Auto) (24-44) % [place] % (Auto) (2-6) % Eos % (Auto) (2-4) % Baso % (Auto) (0-1) % D-Dimer, Quantitative (0.0-400.0) ng/mL Sodium (140-148) mmol/L Potassium (3.6-5.2) mmol/L Chloride (100-108) mmol/L Carbon Dioxide (21-32) mmol/L Anion Gap (5.0-14.0) mmol/L BUN (7-18) mg/dL Creatinine (0.6-1.0) mg/dL Est Cr Clr Drug Dosing mL/min Estimated GFR (MDRD) (>60) Glucose (74-106) mg/dL Calcium (8.5-10.1) mg/dL Magnesium (1.8-2.4) mg/dL Total Bilirubin (0.2-1.0) mg/dL AST (15-37) U/L ALT (12-78) U/L Alkaline Phosphatase (46-116) U/L Total Protein (6.4-8.2) g/dL Albumin (3.4-5.0) g/dL Globulin (2.3-3.5) g/dL Albumin/Globulin Ratio (1.2-2.2) Urine Color Yellow (YELLOW) Urine Appearance Clear (CLEAR) Urine pH 5.5 (5.0-8.0) Ur Specific [place] 1.015 (1.008-1.030) Urine Protein Negative (NEGATIVE) mg/dL Urine Glucose (UA) Negative (NEGATIVE) mg/dL Urine Ketones Negative (NEGATIVE) mg/dL Urine Occult Blood Trace-lysed H (NEGATIVE) Urine Nitrite Negative (NEGATIVE) Urine Bilirubin Negative (NEGATIVE) Urine Urobilinogen 0.2 (0.2-1.0) EU/dL Ur Leukocyte Esterase Small H (NEGATIVE) Urine RBC 0-5 (0-5) Urine WBC 5-10 H (0-5) Ur Epithelial Cells Few Amorphous Sediment Not seen Urine Bacteria Few Urine Mucus Moderate Meds: Medications Discontinued Medications Generic Name Dose Route Start Last Admin Trade Name Freq PRN Reason Stop Dose Admin Ondansetron HCl 4 mg 11/01/19 11:56 11/01/19 12:05 Zofran Odt PO 11/01/19 11:57 4 mg ONETIME ONE Administration - Re-Assessments/Exams Free Text/Narrative Re-Assessment/Exam: 11/01/19 12:49 pt arrived with swelling in the left parotid area. This came on suddenly when she was chewing toast. She was noted to have some mild facial change and I believe this is related to her parotid swelling. Her bp was elevated on arrival. She did take her bp med this am. She may need some readjustment to her bp med like adding a low dose hctz. her lab work looks normal. She states post op she developed swelling and tenderness in the lrft leg. This is less swollen now. A US was done which did not reveal any clot present. Her ddimer was borderline but I believe this is related to her recent surgery. She is feeling better Departure - Departure Time of Disposition: 12:55 Disposition: Home, Self-Care 01 Condition: Fair Clinical Impression: Parotid swelling, Hypertension - Discharge Information Instructions: Hypertension, Adult, [id number], Edema, [id number] Referrals: PCP,None [Primary Care Provider] - Forms: ED Department Discharge Care Plan Goals: massage the parotid gland several times daily, cool pack, keflex 500mg bid for 7 days, appt with Dr Chavez to relook at her bp. She may need a low dose diuretic with the cozaar. rtc if increased problems. Sepsis Event Note (ED) - Focused Exam Vital Signs: Vital Signs Temp Pulse Resp BP Pulse Ox 11/01/19 11:36 37.1 C 78 16 205/73 H 96 11/01/19 11:22 68 15 169/73 H 94 L 11/01/19 11:18 37.1 C 78 16 205/73 H 96
[2019-11-01] MEDS ORDERED: Ondansetron 4 MG Tab.DIS PO ONE (11:56)
--- NOTE | 2019-11-01 12:44 | US ---
VL Duplex Lwr Ext Veins Ltd Lt INDICATION: recent surgery, swelling anf pain in the left leg. FINDINGS: Ultrasound examination of the lower extremity using Doppler and compressive technique demonstrates that the common femoral, femoral, and popliteal veins are patent, and compressible throughout. The calf veins were segmentally visualized and are negative where seen. IMPRESSION: Negative for deep venous thrombosis.
[2019-11-01 13:20] VITALS: BP 187/74; PULSE 74
== END 2019-11-01 13:20 | disposition home or self-care (01) ==
LOC: JP.ED 11:00
DX: R22.0 Localized swelling, mass and lump, head (principal); I10 Essential (primary) hypertension; E03.9 Hypothyroidism, unspecified; E66.9 Obesity, unspecified; M19.90 Unspecified osteoarthritis, unspecified site; Z88.2 Allergy status to sulfonamides; Z68.28 Body mass index [BMI] 28.0-28.9, adult; Z79.899 Other long term (current) drug therapy
CPT/HCPCS: 36415; 80053; 81001; 83735; 85025; 85379; 93971; 99285; A9270

== ENCOUNTER 2020-11-12 05:48 | Day surgery (SDC) | payer MEDICARE ==
[2020-11-12] MEDS ORDERED: Nozin Nasal Sanitizer NASBOTH ONE (06:30)
[2020-11-12] MEDS ORDERED: Lactated Ringers 1,000 ML IV SCH (06:30)
[2020-11-12] MEDS ORDERED: Bupivacaine 0.5% 50 ML MDV ONE (07:05)
[2020-11-12] MEDS ORDERED: fentaNYL 100 MCG/2 ML SDV ONE (07:19)
[2020-11-12] MEDS ORDERED: Propofol 200 MG/20 ML SDV ONE ×2 (07:19→08:34)
[2020-11-12] MEDS ORDERED: Midazolam 1 MG/ML 2 ML SDV ONE (07:19)
[2020-11-12] MEDS ORDERED: Bupivacaine 0.5% 30 ML SDV ONE (07:21)
[2020-11-12] MEDS ORDERED: ceFAZolin 2 GM in Premix Bag 1 BAG IV ONE (07:30)
[2020-11-12 10:17] VITALS: PULSE 65
[2020-11-12 10:29] VITALS: BP 142/62
--- NOTE | 2020-11-24 15:34 | OR ---
DATE OF PROCEDURE: 11/12/2020 SURGEON: Myron oSsa MD PREOPERATIVE DIAGNOSIS: Rotator cuff tear, left shoulder. POSTOPERATIVE DIAGNOSES: 1. Small full-thickness tear, rotator cuff, left shoulder. 2. Osteoarthritis of glenohumeral joint with full-thickness defects in the humeral head and glenoid. 3. Ortega complex. PROCEDURES PERFORMED: 1. Arthroscopy of left shoulder with chondroplasty of humeral head and glenoid. 2. Arthroscopic rotator cuff repair. 3. Subacromial decompression with acromioplasty. VINYL TOP INSTALLER: ALLA Gilliland ANESTHESIA: Interscalene block with sedation. INDICATIONS: Mariann is a 70-year-old female with a history of progressive and persistent left shoulder pain. She has difficulty with reaching and overhead activities. Examination and imaging are consistent with rotator cuff tear of left shoulder. She now presents for arthroscopic repair. Risks, benefits, and potential complications of the procedure were discussed. DESCRIPTION OF PROCEDURE: After adequate anesthesia was obtained, the patient was placed in the lateral decubitus position and secured with a garcia bag positioner. The left shoulder and arm were prepped and draped in a sterile fashion. 10 pounds of traction was placed in the shoulder traction unit. A standard posterior portal was established. The scope was introduced, and the glenohumeral joint was inspected. This revealed full-thickness articular cartilage defects from both the central portion of the humeral head and the glenoid. Some loose fragmentation was present around the periphery of both defects. The glenoid labrum was intact with a Ortega complex variant. The subscapularis had some minor fraying on the superior aspect without significant tear. Biceps tendon was intact. The undersurface of the rotator cuff showed a small full-thickness defect in the supraspinatus. Anterior portal was established, and a shaver was used to lightly debride the fragmented portions around the glenoid. Due to the curvature of the humeral head, the defect on the head could not be accessed through the anterior portal. The scope was switched from the posterior to the anterior portal, and working through the posterior portal, a light debridement chondroplasty of the humeral head was done, removing the loose fragments from the periphery. The scope was then withdrawn and placed in the subacromial space. The bursa was cleared for visualization. Significant impingement noted with fraying of the coracoacromial ligament. A small full-thickness defect in the cuff was identified just off the edge of the acromion. Using a combination of shaver and the radiofrequency ablation wand, soft tissues were removed from the undersurface of the acromion. Acromioplasty was then performed, removing the anterolateral edge approximately 4 to 5 mm and bevelling this medially and posteriorly. Attention was then turned to the rotator cuff. A shaver was used to lightly debride the edges of the tear. A dean was used to decorticate the superior surface of the tuberosity, and a single Mitek Gryphon anchor was placed. Both limbs of each of the suture pairs were brought up through the cuff and tied down. All 4 limbs were placed through a Mitek knotless anchor which was secured into the tuberosity laterally providing a suture bridge double row repair. The arm was taken through internal and external rotation and found to have stable fixation with no other abnormalities. The shoulder was drained. The scope was withdrawn. Port sites were closed in a standard fashion, and a sterile dressing was applied. The patient tolerated the procedure well. There were no complications. She was taken from the operating room in stable condition. Myron Sosa MD /[id number]
== END 2020-11-12 11:00 | disposition home or self-care (01) ==
LOC: JP.SDS 05:48
PROVIDERS: ATTEND Specialist
DX: M75.122 Complete rotator cuff tear or rupture of left shoulder, not specified as traumatic (principal); M19.012 Primary osteoarthritis, left shoulder; I10 Essential (primary) hypertension; E03.9 Hypothyroidism, unspecified; K21.9 Gastro-esophageal reflux disease without esophagitis; Z88.2 Allergy status to sulfonamides; Z88.8 Allergy status to other drugs, medicaments and biological substances; Z79.890 Hormone replacement therapy; Z79.899 Other long term (current) drug therapy; Z85.850 Personal history of malignant neoplasm of thyroid; Z98.890 Other specified postprocedural states; X58.XXXA Exposure to other specified factors, initial encounter
CPT/HCPCS: 29826; 29827; A9270; C1713; J0690; J2250; J2704; J3010; J3490; J7120

== ENCOUNTER 2021-03-28 10:11 | Emergency (ER) | payer MEDICARE ==
[2021-03-28 10:38] VITALS: BP 147/69; PULSE 80
--- NOTE | 2021-03-28 11:29 | EDM.PDOC ---
ED HPI GENERAL MEDICAL PROBLEM - General Chief Complaint: Respiratory Problem Stated Complaint: CONGESTION, COUGH Time Seen by Provider: 03/28/21 11:15 Source of Information: Reports: Patient, Old Records, RN History Limitations: Reports: No Limitations - History of Present Illness INITIAL COMMENTS - FREE TEXT/NARRATIVE: 70 yo female here with cough and congestion. Sx's for about a week. Cough non- productive. Not SOB. Has not been seen before today. Is fully vaccinated for Covid. May have had a low grade fever early on. Onset: Gradual Onset Date: 03/28/21 Duration: Week(s): (1) Location: Reports: Face (nose), Chest Quality: Reports: Burning (mild in trachea with coughing) Severity: Mild Improves with: Reports: Other (not coughing) Worsens with: Reports: Other (coughing) Context: Reports: Other (See HPI) Associated Symptoms: Reports: Cough. 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 (see below) (none) - Related Data Allergies Allergy/AdvReac Type Severity Reaction Status Date / Time Sulfa (Sulfonamide Allergy Rash Verified 03/28/21 10:38 Antibiotics) lisinopril AdvReac Cough Verified 03/28/21 10:38 Home Meds: Home Meds Acyclovir 800 mg PO BID 04/24/15 [History] Oxybutynin 5 mg PO DAILY 07/05/18 [History] Levothyroxine [Synthroid] 100 mcg PO ACBREAKFAST #90 tablet 03/01/19 [Rx] Magnesium Oxide 400 mg PO DAILY #30 tablet 03/01/19 [Rx] Famotidine 40 mg PO DAILY 10/09/19 [History] Losartan [Cozaar] 100 mg PO DAILY 10/09/19 [History] Pantoprazole Sodium [Protonix] 40 mg PO DAILY 10/09/19 [History] hydroCHLOROthiazide [Hydrochlorothiazide] 25 mg PO DAILY 03/13/20 [History] Betamethasone/Clotrimazole [Lotrisone] 1 applic TOP BID 10/01/20 [History] Multivitamin [Multi-Vitamin Daily] 1 tab PO DAILY 10/01/20 [History] Calcium Carbonate/Vitamin D3 [Calcium 1,000 + D3 Caplet] 1 each PO DAILY 11/12/20 [History] [place]-3/DHA/Epa/Fish Oil [[place]-3 Fish Oil 1,000 MG Sfgl] 1,000 mg PO DAILY 11/12/20 [History] Vitamin B Complex [B Complex] 1 each PO DAILY 11/12/20 [History] Past Medical History HEENT History: Reports: Impaired Vision Cardiovascular History: Reports: Hypertension Respiratory History: Reports: Other (See Below) Other Respiratory History: chronic cough since November 2018 Gastrointestinal History: Reports: Colon Polyp Genitourinary History: Reports: None 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: Dysfunctional Uterine Bleeding, Other TEACHER HEARING IMPAIRED History: bleeding is now controlled see in OBGYN Musculoskeletal History: Reports: Arthritis, Fracture Other Musculoskeletal History: femur Fx Neurological History: Reports: Vertigo Endocrine/Metabolic History: Reports: Hypothyroidism, Obesity/BMI 30+, Other (See Below) Other Endocrine/Metabolic History: hyperglycemia Oncologic (Cancer) History: Reports: Thyroid - Infectious Disease History Infectious Disease History: Reports: Chicken Pox, 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 L RC tear 01/15/20 Oncologic Surgical History: Reports: Other (See Below) Other Oncologic Surgeries/Procedures: thyroidectomy Social & Family History - Family History Family Medical History: No Pertinent Family History - Tobacco Use Tobacco Use Status *Q: Never Tobacco User - Caffeine Use Caffeine Use: Reports: Coffee - Recreational Drug Use Recreational Drug Use: No ED ROS GENERAL - Review of Systems Review Of Systems: See Below Constitutional: Reports: No Symptoms HEENT: Reports: Rhinitis Respiratory: Reports: Cough. Denies: Shortness of Breath Cardiovascular: Reports: No Symptoms GI/Abdominal: Reports: No Symptoms : Reports: No Symptoms Musculoskeletal: Reports: No Symptoms Skin: Reports: No Symptoms Neurological: Reports: No Symptoms ED EXAM, GENERAL - Physical Exam Exam: See Below Exam Limited By: No Limitations General Appearance: Alert, WD/WN, No Apparent Distress Eye Exam: Bilateral Eye: Normal Inspection Ears: Normal External Exam, Normal Canal, Hearing Grossly Normal, Normal TMs Ear Exam: Bilateral Ear: Auricle Normal, Canal Normal, TM normal Nose: Normal Inspection, No Blood Throat/Mouth: Normal Inspection, Normal Lips, Normal Oropharynx, Normal Voice, No Airway Compromise Head: Atraumatic, Normocephalic Neck: Normal Inspection Respiratory/Chest: No Respiratory Distress, Lungs Clear, Normal Breath Sounds, No Accessory Muscle Use Cardiovascular: Regular Rate, Rhythm, No Edema GI/Abdominal: Soft, Non-Tender Back Exam: Normal Inspection Extremities: Normal Inspection Neurological: Alert, Oriented, CN II-XII Intact, Normal Cognition, No Motor/Sensory Deficits Psychiatric: Normal Affect, Normal Mood Skin Exam: Warm, Dry, Intact, Normal Color, No Rash Course - Vital Signs Last Recorded V/S: Last Vital Signs Temp 36.9 C 03/28/21 10:31 Pulse 80 03/28/21 10:31 Resp 20 03/28/21 10:31 BP 147/69 H 03/28/21 10:31 Pulse Ox 96 03/28/21 10:31 - Orders/Labs/Meds Orders: Active Orders 24 hr Category Date Time Status Isolation [COMM] Stat Oth 03/28/21 11:26 Ordered Labs: Laboratory Tests 03/28/21 Range/Units 11:37 Influenza Type A RNA Positive H (NEGATIVE) RSV RNA ([facility]) Negative (NEGATIVE) Influenza Type B RNA Negative (NEGATIVE) SARS-CoV-2 RNA ([facility]) Negative (NEGATIVE) Departure - Departure Time of Disposition: 12:21 Disposition: Home, Self-Care 01 Condition: Fair Clinical Impression: Influenza A - Discharge Information *PRESCRIPTION DRUG MONITORING PROGRAM REVIEWED*: Not Applicable *COPY OF PRESCRIPTION DRUG MONITORING REPORT IN PATIENT STELLA: Not Applicable Instructions: Influenza, Adult, [id number] Referrals: Josh Chavez MD [Primary Care Provider] - Forms: ED Department Discharge Additional Instructions: Drink ample fluids. Robitussin DM for cough. Acetaminophen for fever. Isolate for a few more days to prevent spread. Recheck if worse. Sepsis Event Note (ED) - Focused Exam Vital Signs: Vital Signs Temp Pulse Resp BP Pulse Ox 03/28/21 10:31 36.9 C 80 20 147/69 H 96 - My Orders Last 24 Hours: My Active Orders 03/28/21 11:26 Isolation [COMM] Stat - Assessment/Plan Last 24 Hours: My Active Orders 03/28/21 11:26 Isolation [COMM] Stat
[2021-03-28 12:19] LABS: CORONAVIRUS COVID-19 NAA NEGATIVE (NEGATIVE)
== END 2021-03-28 12:31 | disposition home or self-care (01) ==
LOC: JP.ED 10:11
DX: J10.1 Influenza due to other identified influenza virus with other respiratory manifestations (principal); E03.9 Hypothyroidism, unspecified; E66.9 Obesity, unspecified; Z68.33 Body mass index [BMI] 33.0-33.9, adult; Z88.8 Allergy status to other drugs, medicaments and biological substances; Z88.2 Allergy status to sulfonamides; Z79.899 Other long term (current) drug therapy
CPT/HCPCS: 0241U; 99283

== ENCOUNTER 2021-04-24 07:33 | Day surgery (SDC) | payer MEDICARE ==
[~2021-04-24 07:33] MED LIST: Midazolam 1 MG/ML 2 ML SDV ONE; Propofol 200 MG/20 ML SDV ONE; fentaNYL 100 MCG/2 ML SDV ONE
[2021-04-24] MEDS ORDERED: Dextrose 5%-Lactated Ringers 1,000 ML IV SCH (08:30)
[2021-04-24] MEDS ORDERED: Glycopyrrolate 0.2 MG/ML 2 ML SDV IVPUSH ONE (08:30)
[2021-04-24 10:26] VITALS: BP 131/65; PULSE 66
== END 2021-04-24 10:45 | disposition home or self-care (01) ==
LOC: JP.SDS 07:33
PROVIDERS: ATTEND Surgery
DX: K29.60 Other gastritis without bleeding (principal); K44.9 Diaphragmatic hernia without obstruction or gangrene; K21.00 Gastro-esophageal reflux disease with esophagitis, without bleeding; I10 Essential (primary) hypertension
CPT/HCPCS: 43239; 87081; J2250; J2704; J3010; 88305

== ENCOUNTER 2023-01-25 12:52 | Emergency (ER) | payer MEDICARE ==
[2023-01-25] MEDS ORDERED: Sodium Chloride 0.9% 10 ML Syringe FLUSH PRN (12:58)
[2023-01-25 13:13] LABS: BASOPHILS ABSOLUTE AUTO 0.06 K/uL (0.00-0.10); BASOPHILS PERCENT AUTO 0.9 % (0.1-1.3); EOSINOPHILS PERCENT AUTO 2.8 % (0.0-5.4); HEMATOCRIT 43.9 % (34.3-46.0); HEMOGLOBIN 14.4 g/dL (11.2-15.5); IMMATURE GRAN PERCENT AUTO 0.3 % (0.0-0.7); LYMPHOCYTES ABSOLUTE AUTO 1.77 K/uL (0.8-3.3); LYMPHOCYTES PERCENT AUTO 25.1 % (11.4-47.7); MEAN CORPUSCULAR HEMOGLOBIN 28.8 pg (31.6-35.5); MEAN CORPUSCULAR HGB CONC 32.8 g/dL (31.6-35.5); MEAN CORPUSCULAR VOLUME 87.8 fL (81.4-99.0); MONOCYTES ABSOLUTE AUTO 0.52 K/uL (0.20-0.90); MONOCYTES PERCENT AUTO 7.4 % (3.3-12.6); NEUTROPHILS ABSOLUTE AUTO 4.48 K/uL (1.0-7.6); NEUTROPHILS PERCENT AUTO 63.5 % (40.0-78.1); PLATELET COUNT,PLT 269 K/uL (130-375); WHITE BLOOD CELL COUNT,WBC 7.1 K/uL (3.2-11.0)
[2023-01-25 13:15] LABS: IMMATURE GRAN ABSOLUTE AUTO 0.02 K/uL (0.00-0.23)
[2023-01-25 13:32] LABS: PROTHROMBIN TIME 9.8 sec (9.2-10.6); PTT,PARTIAL THROMBOPLSTIN TIME 28.3 sec (21.8-27.3)
[2023-01-25 13:42] LABS: A/G RATIO 0.8 (1.2-2.2); ALANINE AMINOTRANSFERASE,ALT 22 U/L (12-78); ALBUMIN 3.7 g/dL (3.4-5.0); ALKALINE PHOSPHATASE 100 U/L (46-116); ANION GAP 10.2 mmol/L (5.0-14.0); ASPARTATE AMNIOTRANSFERASE,AST 24 U/L (15-37); BILIRUBIN TOTAL 0.2 mg/dL (0.2-1.0); BLOOD UREA NITROGEN,BUN 19 mg/dL (7-18); CALCIUM 9.1 mg/dL (8.5-10.1); CARBON DIOXIDE,CO2 30 mmol/L (21-32); CHLORIDE,CL 101 mmol/L (100-108); ESTIMATED GFR 61 mL/min (>60); GLUCOSE RANDOM 158 mg/dL (74-106); POTASSIUM,K 3.8 mmol/L (3.6-5.2); PROTEIN TOTAL,TP 8.1 g/dL (6.4-8.2); SODIUM,NA 141 mmol/L (140-148)
[2023-01-25] MEDS ORDERED: predniSONE 20 MG Tab PO ONE (13:47)
[2023-01-25] MEDS ORDERED: valACYclovir 1,000 MG Tab PO ONE (13:48)
[2023-01-25 14:24] VITALS: BP 145/93; PULSE 95
[2023-01-25 14:26] LABS: LYME AB IgM Negative (Negative)
[2023-01-25 14:28] LABS: LYME AB IgG Negative (Negative)
== END 2023-01-25 15:06 | disposition home or self-care (01) ==
LOC: JP.ED 12:52
DX: R53.1 Weakness (principal); I10 Essential (primary) hypertension; E66.9 Obesity, unspecified; G51.0 Bell's palsy; B34.9 Viral infection, unspecified; Z88.2 Allergy status to sulfonamides; Z88.8 Allergy status to other drugs, medicaments and biological substances
CPT/HCPCS: 36415; 70450; 80053; 82947; 84484; 85025; 85610; 85730; 86618; 93005; 99284; A9270; J3490; J7512

== ENCOUNTER 2023-07-21 08:01 | Day surgery (SDC) | payer MEDICARE ==
[2023-07-21] MEDS: Sodium Chloride 0.9% 10 ML Syringe FLUSH PRN (08:37)
[2023-07-21 09:35] VITALS: BP 160/77; PULSE 71
== END 2023-07-21 09:47 | disposition home or self-care (01) ==
LOC: JP.SDS 08:01
PROVIDERS: ATTEND Ophthalmology
DX: H26.9 Unspecified cataract (principal); I10 Essential (primary) hypertension; K21.9 Gastro-esophageal reflux disease without esophagitis; Z88.2 Allergy status to sulfonamides
CPT/HCPCS: 66984; J3490; V2632

== ENCOUNTER 2023-08-04 08:04 | Day surgery (SDC) | payer MEDICARE ==
[2023-08-04] MEDS: Sodium Chloride 0.9% 10 ML Syringe FLUSH PRN (08:52)
[2023-08-04 09:51] VITALS: BP 163/89; PULSE 75
== END 2023-08-04 09:56 | disposition home or self-care (01) ==
LOC: JP.SDS 08:04
PROVIDERS: ATTEND Ophthalmology
DX: H25.12 Age-related nuclear cataract, left eye (principal)
CPT/HCPCS: 66984; J3490; V2632

== ENCOUNTER 2024-02-14 11:50 | Emergency (ER) | payer MEDICARE ==
[2024-02-14 14:27] VITALS: BP 163/73; PULSE 70
== END 2024-02-14 14:55 | disposition home or self-care (01) ==
LOC: JP.ED 11:50
DX: S76.312A Strain of muscle, fascia and tendon of the posterior muscle group at thigh level, left thigh, initial encounter (principal); S80.02XA Contusion of left knee, initial encounter; I10 Essential (primary) hypertension; E66.9 Obesity, unspecified; E03.9 Hypothyroidism, unspecified; Z88.2 Allergy status to sulfonamides; Z91.048 Other nonmedicinal substance allergy status; Z88.8 Allergy status to other drugs, medicaments and biological substances; Z79.890 Hormone replacement therapy; Z79.899 Other long term (current) drug therapy; Z90.710 Acquired absence of both cervix and uterus; W19.XXXA Unspecified fall, initial encounter; Y93.01 Activity, walking, marching and hiking
CPT/HCPCS: 73552-26-LT; 73552-LT; 73562-26-LT; 73562-LT; 99283; 99284